=== PATIENT | female | born 1955 | race Caucasian/White ===

== ENCOUNTER 2016-12-24 11:58 | Emergency (ER) | payer MEDICAID ==
[~2016-12-24 11:58] MED LIST: ALBU6.7H INH; HYDR-3533 PO; PRED20 PO; SPAC1MIS6; XANA0.5T PO; ZITH250T PO
[2016-12-24 12:07] VITALS: BP 146/94; PULSE 85; RESP 18; TEMP 98.1; O2SAT 98
[2016-12-24] MEDS ORDERED: XANA1TAB2 PO (12:17)
[2016-12-24] MEDS ORDERED: ORPHENADRINE INJ 60 MG/2 ML AMP IM ONE (12:30)
[2016-12-24] MEDS ORDERED: KETOROLAC TROMETHAMINE 60 MG/2 ML (IM) VIAL IM ONE (12:30)
[2016-12-24] MEDS ORDERED: ROBA500T PO (12:33)
[2016-12-24] MEDS ORDERED: MELO-1 PO (12:33)
--- NOTE | 2016-12-24 12:34 | PD ---
HPI Chief Complaint: Pain: Acute or Chronic Time Seen by Provider: 12:00 Travel History International Travel<30 days: No Contact w/Intl Traveler<30days: No Traveled to known affect area: No History of Present Illness HPI 61-year-old female presents emergency department for evaluation of low back pain. Patient reports history of chronic low back pain. Her primary care stopped prescribing her Lortabs approximately 2 months ago. Since then she reports she has had continued pain. She denies any recent trauma. The pain is localized to the low back, nonradiating, constant. No alleviating or aggravating factors. She denies fever or chills, incontinence, saddle anesthesia, numbness/tingling since weakness of the lower extremity's. PFSH Past Medical History Arthritis: No Asthma: No Autoimmune Disease: No Blood Disorders: No Anxiety: Yes Depression: Yes Heart Rhythm Problems: No Cancer: No Cardiovascular Problems: Yes (HIGH CHOLESTEROL CONTROLLED WITH DIET) High Cholesterol: No Chemotherapy: No Chest Pain: No Congestive Heart Failure: No COPD: No Cerebrovascular Accident: No Diabetes: No Diminished Hearing: No Endocrine: No GERD: No Glaucoma: No Genitourinary: No Headaches: Yes Hepatitis: No Hiatal Hernia: No Hypertension: No Immune Disorder: No Kidney Stones: No Musculoskeletal: Yes (PAIN LEFT KNEE & PAIN NECK & BACK, RADIATES TO RIGHT ARM) Neurologic: Yes (MIGRAINE HEADACHES, CERVICAL FUSION PAIN RADIATES FROM NECK TO ARMS) Psychiatric: Yes (DEPRESSION & ANXIETY ) Reproductive: No Respiratory: No Immunizations Current: No Myocardial Infarction: No Radiation Therapy: No Renal Failure: No Seizures: No Sickle Cell Disease: No Sleep Apnea: No Thyroid Disease: No Ulcer: No Past Surgical History Abdominal Surgery: Yes (GALLBLADDER) AICD: No Body Medical Devices: CERVICAL FUSION SCREWS AND PLATE 2003 Cardiac Surgery: No Cholecystectomy: Yes Ear Surgery: No Endocrine Surgery: No Eye Surgery: No Genitourinary Surgery: No Gynecologic Surgery: No Joint Replacement: Yes (LEFT KNEE) Neurologic Surgery: Yes (PLATES/SCREWS CERVICAL FUSION) Oral Surgery: Yes (T&A ) Pacemaker: No Thoracic Surgery: No Other Surgery: Yes Social History Alcohol Use: No Tobacco Use: Yes (1/2PPD) Substance Use: No Allergies-Medications (Allergen,Severity, Reaction): Coded Allergies: *MDRO Multi-Drug Resistant Organism (Unverified Allergy, Mild, 12/24/16) Reported Meds & Prescriptions Reported Meds & Active Scripts Active Robaxin (Methocarbamol) 500 Mg Tab 500 Mg PO TID PRN Meloxicam 15 Mg Tab 15 Mg PO DAILY Reported Xanax (Alprazolam) 1 Mg Tab 1 Mg PO Q8H PRN Review of Systems Except as stated in HPI: all other systems reviewed are Neg General / Constitutional: No: Fever Eyes: No: Visual changes HENT: No: Headaches Cardiovascular: No: Chest Pain or Discomfort Respiratory: No: Shortness of Breath Gastrointestinal: No: Abdominal Pain Genitourinary: No: Dysuria Skin: No Rash Neurologic: No: Weakness Physical Exam Narrative GENERAL: Well-nourished, well-developed patient. SKIN: Focused skin assessment warm/dry. HEAD: Normocephalic. EYES: No scleral icterus. No injection or drainage. NECK: Supple, trachea midline. No JVD or lymphadenopathy. CARDIOVASCULAR: Regular rate and rhythm without murmurs, gallops, or rubs. RESPIRATORY: Breath sounds equal bilaterally. No accessory muscle use. GASTROINTESTINAL: Abdomen soft, non-tender, nondistended. MUSCULOSKELETAL: No cyanosis, or edema. BACK: without obvious deformity. No CVA tenderness. He reports generalized low back pain without specific point tenderness. No CVA tenderness Data Data Last Documented VS Vital Signs Date Time Temp Pulse Resp B/P Pulse Ox O2 Delivery O2 Flow Rate FiO2 12/24/16 12:07 98.1 85 18 146/94 98 Orders Ketorolac Inj (Toradol Inj) (12/24/16 12:30) Orphenadrine Inj (Norflex Inj) (12/24/16 12:30) MDM Medical Decision Making Medical Screen Exam Complete: Yes Emergency Medical Condition: Yes Differential Diagnosis Degenerative disc disease, Chronic low back pain, lumbar strain Narrative Course 61-year-old female presents emergency department for evaluation of low back pain. Patient reports history of chronic low back pain. Her primary care stopped prescribing her Lortabs approximately 2 months ago. Since then she reports she has had continued pain. She denies fever or chills, incontinence, saddle anesthesia, numbness/tingling since weakness of the lower extremity's. Her physical exams is reassuring. Discussed with patient and family in detail that chronic pain medication would not be prescribed from the emergency room. She was referred to pain management. She agrees to plan. Diagnosis Primary Impression: Chronic low back pain Qualified Code: M54.5 - Chronic low back pain without sciatica, unspecified back pain laterality Referrals: Pain Management Additional Instructions: Take medications as prescribed. Speak with your insurance company regarding what pain management is covered in the area. Follow-up with her primary care doctor. Scripts Methocarbamol (Robaxin)500 Mg [id number] Mg PO TID PRN (MUSCLE SPASM) #15 TAB Prov:Marita Kaiser 12/24/16 Meloxicam 15 Mg Tab15 Mg PO DAILY #20 TAB Ref 0 Prov:Marita Kaiser 12/24/16 Disposition: 01 DISCHARGE HOME Condition: Stable Marita Kaiser Dec 24, 2016 12:34
== END 2016-12-24 13:04 | disposition home or self-care (01) ==
LOC: PHEFT 11:58
DX: G89.29 Other chronic pain (principal); M54.5 Low back pain; E78.00 Pure hypercholesterolemia, unspecified; F17.210 Nicotine dependence, cigarettes, uncomplicated
CPT/HCPCS: 96372; 99284; J1885; J2360